=== PATIENT | male | born 1955 | race Caucasian/White ===

== ENCOUNTER 2017-10-21 16:45 | Inpatient (IN) | payer OTHER ==
[~2017-10-21] VITALS: Ht 182.9 cm; Wt 104.3 kg
[~2017-10-21 16:45] MED LIST: ACET-2469 PO; APIX5TAB PO; ASPI-983 PO; BUDE10.2 IH; CALC1TAB94 PO; CARV12.52 PO; CLOP75TA69 PO; CYAN10006 PO; ESOM20CA58 PO; FURO-125 PO; LISI10TA2 PO; LISI1TAB8 PO; LOVA20TA2 PO; METF10002 PO; METO50TA15 PO; METO75TA PO; OMEP20TA33 PO; OMEP20TA7 PO; POTA10TA36 PO
[2017-10-21] MEDS ORDERED: morphine INJ 10 MG/ML 1ML (SYR OR VIAL) IVP ONE (17:00)
[2017-10-21] MEDS ORDERED: ASPIRIN 81 MG CHEW (CHILDREN'S ASA) PO ONE (17:00)
--- NOTE | 2017-10-21 17:03 | ED Chest Pain ---
General Stated Complaint: VOMITING, LIGHT HEADED/CP Source: patient Exam Limitations: no limitations History of Present Illness Date Seen by Provider: Oct 21, 2017 Time Seen by Provider: 16:58 Initial Comments Patient is a 62-year-old male who presents to the emergency room with complaints of chest pain that has been constant for 2 days but today he started having shortness of breath and nausea and vomiting. He reports that he has an extensive cardiac history, he's had a three-vessel CABG, congestive heart failure, ischemic cardiomyopathy, hypertension, atrial fibrillation with rapid ventricular rate, ejection fraction of 15-20%. He states that he is supposed to wear LifeVest for runs of [employer] but does not have it on today because it is too hot and he left in the truck. He also reports that he's been having diarrhea for the past 2-3 days in his chest pain is worse with inspiration. Timing/Duration: constant, 1-2 days Severity/Quality: moderate Location: substernal ASA po PHYSICAL DESIGN ENGINEER: No NTG SL PHYSICAL DESIGN ENGINEER: No Associated Symptoms: nausea/vomiting, shortness of breath Allergies and Home Medications Allergies Coded Allergies: codeine (Verified Allergy, Mild, ITCHING, 08/21/17) Home Medications Acetaminophen/Diphenhydramine 1 Each Tablet, 3 TAB PO HS, (Reported) Apixaban 5 Mg Tablet, 5 MG PO BID Prescribed by: ALLEY URIAS on 08/23/17821 Aspirin 81 Mg Tablet.dr, 81 MG PO DAILY, (Reported) Budesonide/Formoterol Fumarate 10.2 Gm Hfa.aer.ad, 2 PUFF IH BID, (Reported) Calcium Carbonate/Vitamin D3 1 Each Tablet, 1 TAB PO DAILY, (Reported) Cyanocobalamin (Vitamin B-12) 1,000 Mcg Tablet, 1,000 MCG PO DAILY, (Reported) Furosemide 20 Mg Tablet, 20 MG PO DAILY Prescribed by: ALLEY URIAS on 08/23/17821 Lisinopril 10 Mg Tablet, 10 MG PO DAILY Prescribed by: ALLEY URIAS on 08/23/17821 Lovastatin 20 Mg Tablet, 20 MG PO HS, (Reported) LAST FILLED #90 04-30-17 Metformin HCl 1,000 Mg Tablet, 1,000 MG PO DAILY LAST FILLED #180 04-30-17 Prescribed by: ALLEY URIAS on 4/21/18 0822 Metoprolol Tartrate 75 Mg Tablet, 75 MG PO BID Prescribed by: FAMILIA QUENE on 08/23/17 1317 Omeprazole 20 Mg Tablet.dr, 20 MG PO DAILY Prescribed by: ALLEY URIAS on 08/23/17 0935 Potassium Chloride 10 Meq Tab.er.prt, 10 MEQ PO DAILY, (Reported) Patient Home Medication List Home Medication List Reviewed: Yes Review of Systems Constitutional: see HPI; No chills, No diaphoresis EENTM: See HPI; No Eye Pain, No Eye Tearing Respiratory: See HPI, Shortness of Air; Denies Wheezing Cardiovascular: See HPI, Chest Pain; Denies Palpitations Gastrointestinal: See HPI, Diarrhea, Nausea, Vomiting Genitourinary: Denies See HPI, Denies Burning, Denies Discharge Musculoskeletal: see HPI; No back pain, No muscle pain Skin: see HPI; No change in color, No pruritus, No rash Psychiatric/Neurological: See HPI; Denies Depressed, Denies Emotional Problems Endocrine: See HPI; Denies Excessive Sweating, Denies Flushing Hematologic/Lymphatic: See HPI; Denies Anemia All Other Systems Reviewed Negative Unless Noted: Yes Past Cumsgcr-Ypemxb-Kmprkw Hx Past Med/Social Hx: Reviewed Nursing Past Med/Soc Hx Patient Social History Type Used: Cigarettes Recent Hopitalizations: No Seasonal Allergies Seasonal Allergies: No Past Medical History CABG, Orthopedic Pneumonia, COPD Currently Using CPAP: No Currently Using BIPAP: No Cardiac: Yes Coronary Artery Disease, Heart Attack, Hypertension Neurological: No Genitourinary: No Gastrointestinal: Yes Gastroesophageal Reflux, Hepatitis Degenerate Disk Disease Endocrine: Yes Diabetes, Non-Insulin dep HEENT: No Loss of Vision: Denies Hearing Impairment: Denies Cancer: No Psychosocial: No Integumentary: No Blood Disorders: No Family Medical History Reviewed Nursing Family Hx CVA Physical Exam Vital Signs Vital Signs - First Documented 10/21/17 16:45 Temp 98.1 Pulse 73 Resp 17 B/P (MAP) 109/67 (81) Pulse Ox 96 O2 Delivery Nasal Cannula O2 Flow Rate 2.0 Capillary Refill : General Appearance: No Apparent Distress, WD/WN HEENT: TMs Normal Neck: Normal Inspection Respiratory: Lungs Clear, Normal Breath Sounds, No Accessory Muscle Use, No Respiratory Distress, Other (the pain is worse with deep breathing) Cardiovascular: Regular Rate, Rhythm, No Edema, No Gallop, No JVD, No Murmur, Normal Peripheral Pulses Gastrointestinal: Normal Bowel Sounds, No Organomegaly, No Pulsatile Mass Extremity: Normal Capillary Refill, Normal Inspection, Normal Range of Motion, Non Tender, No Calf Tenderness Neurologic/Psychiatric: Alert, Oriented x3, Normal Mood/Affect Skin: Normal Color, Warm/Dry Lymphatic: No Adenopathy Progress/Results/Core Measures Results/Orders Lab Results Laboratory Tests Test 10/21/17 16:50 Range/Units White Blood Count 15.2 H 4.3-11.0 10^3/uL Red Blood Count 4.23 L 4.35-5.85 10^6/uL Hemoglobin 13.7 13.3-17.7 G/DL Hematocrit 38 L 40-54 % Mean Corpuscular Volume 89 80-99 FL Mean Corpuscular Hemoglobin 32 25-34 PG Mean Corpuscular Hemoglobin Concent 36 32-36 G/DL Red Cell Distribution Width 13.3 10.0-14.5 % Platelet Count 247 130-400 10^3/uL Mean Platelet Volume 10.8 H 7.4-10.4 FL Neutrophils (%) (Auto) 60 42-75 % Lymphocytes (%) (Auto) 30 12-44 % Monocytes (%) (Auto) 7 0-12 % Eosinophils (%) (Auto) 2 0-10 % Basophils (%) (Auto) 0 0-10 % Neutrophils # (Auto) 9.1 H 1.8-7.8 X 10^3 Lymphocytes # (Auto) 4.6 H 1.0-4.0 X 10^3 Monocytes # (Auto) 1.1 H 0.0-1.0 X 10^3 Eosinophils # (Auto) 0.4 H 0.0-0.3 10^3/uL Basophils # (Auto) 0.1 0.0-0.1 10^3/uL Neutrophils % (Manual) 62 % Lymphocytes % (Manual) 34 % Monocytes % (Manual) 3 % Eosinophils % (Manual) 1 % Basophils % (Manual) 0 % Band Neutrophils 0 % Blood Morphology Comment NORMAL Prothrombin Time 14.7 12.2-14.7 SEC INR Comment 1.2 0.8-1.4 Activated Partial Thromboplast Time 29 24-35 SEC Sodium Level 143 135-145 MMOL/L Potassium Level 4.0 3.6-5.0 MMOL/L Chloride Level 110 H 98-107 MMOL/L Carbon Dioxide Level 21 21-32 MMOL/L Anion Gap 12 5-14 MMOL/L Blood Urea Nitrogen 21 H 7-18 MG/DL Creatinine 1.36 H 0.60-1.30 MG/DL Estimat Glomerular Filtration Rate 53 BUN/Creatinine Ratio 15 Glucose Level 121 H 70-105 MG/DL Calcium Level 8.3 L 8.5-10.1 MG/DL Magnesium Level < 0.7 *L 1.8-2.4 MG/DL Total Bilirubin 0.7 0.1-1.0 MG/DL Aspartate Amino Transf (AST/SGOT) 15 5-34 U/L Alanine Aminotransferase (ALT/SGPT) 17 0-55 U/L Alkaline Phosphatase 56 40-136 U/L Myoglobin 43.8 10.0-92.0 NG/ML Troponin I < 0.30 <0.30 NG/ML B-Type Natriuretic Peptide 23.7 <100.0 PG/ML Total Protein 7.5 6.4-8.2 GM/DL Albumin 4.4 3.2-4.5 GM/DL Lipase 59 8-78 U/L My Orders Orders - RIGOBERTO MONAHAN GATE OPERATOR Cbc With Automated Diff (10/21/17 16:55) Magnesium (10/21/17 16:55) Chest 1 View, Ap/Pa Only (10/21/17 16:55) Ekg Tracing (10/21/17 16:55) Cardiac Profile 1 (10/21/17 16:55) Comprehensive Metabolic Panel (10/21/17 16:55) Myoglobin Serum (10/21/17 16:55) Protime With Inr (10/21/17 16:55) Partial Thromboplastin Time (10/21/17 16:55) O2 (10/21/17 16:55) Monitor-Rhythm Ecg Trace Only (10/21/17 16:55) Lipid Panel (10/22/17 06:00) Aspirin Chewable Tablet (Baby Aspirin Ch (10/21/17 17:00) Saline Lock/Iv-Start (10/21/17 16:55) Lipase (10/21/17 16:55) BNP (10/21/17 16:55) Morphine Injection (Morphine Injection (10/21/17 17:00) Manual Differential (10/21/17 16:50) Ns Iv 1000 Ml (Sodium Chloride 0.9%) (10/21/17 17:08) Ns Iv 1000 Ml (Sodium Chloride 0.9%) (10/21/17 17:15) Ondansetron Injection (Zofran Injectio (10/21/17 17:15) Ondansetron Injection (Zofran Injectio (10/21/17 17:15) Ondansetron Injection (Zofran Injectio (10/21/17 17:12) Magnesium 1 Gm/100 Ml Ivpb (Magnesium Degroot (10/21/17 17:45) Medications Given in ED Current Medications Medications Dose Ordered Sig/Almita Route Start Time Stop Time Status Last Admin Dose Admin Aspirin 324 mg ONCE ONCE PO 10/21/17 17:00 10/21/17 17:01 DC 10/21/17 17:15 324 MG Morphine Sulfate 4 mg ONCE ONCE IVP 10/21/17 17:00 10/21/17 17:01 DC 10/21/17 17:14 2 MG Ondansetron HCl 4 mg ONCE ONCE IVP 10/21/17 17:15 10/21/17 17:16 DC 10/21/17 17:15 8 MG Vital Signs/I&O 10/21/17 10/21/17 10/21/17 16:45 16:45 16:45 Temp 98.1 Pulse 73 Resp 17 B/P (MAP) 109/67 (81) Pulse Ox 96 96 O2 Delivery Nasal Cannula Nasal Cannula Room Air O2 Flow Rate 2.0 2.00 Departure Communication (Admissions) Time/Spoke to Admitting Phy: 17:52 patient's termite technician was Dr. Churchill last time he was here. I discussed the case with Dr. Knott food demonstrator for hospitalist. The patient says he sees Dr. Jc in the outpatient setting and has only seen her once though. I discussed with Dr. Knott, we will admit the patient, replace magnesium IV, consult termite technician in the morning. We'll retrieve his life vest from the truck where he left it in place back on him during his hospital stay. Impression Primary Impression: Hypomagnesemia Additional Impressions: Chest pain Coronary artery disease Ischemic cardiomyopathy Heart failure with reduced ejection fraction Disposition: ADMITTED INPATIENT Condition: Critical Admissions Decision to Admit Reason: Admit from ER (General) Decision to Admit/Date: Oct 21, 2017 Time/Decision to Admit Time: 17:46 RIGOBERTO MONAHAN APRN Oct 21, 2017 17:03
[2017-10-21 17:05] LABS: BASOPHILS # (AUTO) 0.1 10^3/uL (0.0-0.1); BASOPHILS % (AUTO) 0 % (0-10); EOSINOPHILS # (AUTO) 0.4 10^3/uL (0.0-0.3); EOSINOPHILS % (AUTO) 2 % (0-10); HEMATOCRIT 38 % (40-54); HEMOGLOBIN 13.7 G/DL (13.3-17.7); LYMPHOCYTES # (AUTO) 4.6 X 10^3 (1.0-4.0); LYMPHOCYTES % (AUTO) 30 % (12-44); MEAN CORPUSCULAR HEMOGLOBIN 32 PG (25-34); MEAN CORPUSCULAR HGB CONC 36 G/DL (32-36); MEAN CORPUSCULAR VOLUME 89 FL (80-99); MEAN PLATELET VOLUME 10.8 FL (7.4-10.4); MONOCYTES # (AUTO) 1.1 X 10^3 (0.0-1.0); MONOCYTES % (AUTO) 7 % (0-12); NEUTROPHILS # (AUTO) 9.1 X 10^3 (1.8-7.8); NEUTROPHILS % (AUTO) 60 % (42-75); PLATELET COUNT 247 10^3/uL (130-400); RED BLOOD COUNT 4.23 10^6/uL (4.35-5.85); RED CELL DISTRIBUTION WIDTH 13.3 % (10.0-14.5); WHITE BLOOD COUNT 15.2 10^3/uL (4.3-11.0)
[2017-10-21] MEDS ORDERED: NS IV 1000 ML 1,000 ML ONE (17:08)
[2017-10-21] MEDS ORDERED: ONDANSETRON 4 MG/2 ML (SDV) Z0FRAN ONE (17:12)
[2017-10-21] MEDS ORDERED: NS IV 1000 ML 1,000 ML IV SCH (17:15)
[2017-10-21] MEDS ORDERED: ONDANSETRON 4 MG/2 ML (SDV) Z0FRAN IVP ONE ×2 (17:15)
[2017-10-21 17:25] LABS: INR 1.2 (0.8-1.4); PROTHROMBIN TIME PATIENT 14.7 SEC (12.2-14.7)
[2017-10-21 17:32] LABS: ALANINE AMINOTRANSFERASE 17 U/L (0-55); ALBUMIN 4.4 GM/DL (3.2-4.5); ALKALINE PHOSPHATASE 56 U/L (40-136); BILIRUBIN,TOTAL 0.7 MG/DL (0.1-1.0); BUN/CREATININE RATIO 15; CALCIUM 8.3 MG/DL (8.5-10.1); CARBON DIOXIDE 21 MMOL/L (21-32); CHLORIDE 110 MMOL/L (98-107); CREATININE SERUM 1.36 MG/DL (0.60-1.30); GFR ESTIMATED 53; GLUCOSE 121 MG/DL (70-105); LIPASE 59 U/L (8-78); SODIUM 143 MMOL/L (135-145); TOTAL PROTEIN 7.5 GM/DL (6.4-8.2)
[2017-10-21 17:35] LABS: MAGNESIUM < 0.7 MG/DL (1.8-2.4)
[2017-10-21 17:38] LABS: BAND NEUTROPHILS 0 %; BASOPHILS % (MANUAL) 0 %; EOSINOPHILS % (MANUAL) 1 %; LYMPHOCYTES % (MANUAL) 34 %; MONOCYTES % (MANUAL) 3 %; NEUTROPHILS % (MANUAL) 62 %; RBC MORPH NORMAL
[2017-10-21 17:39] LABS: MYOGLOBIN SERUM 43.8 NG/ML (10.0-92.0)
--- NOTE | 2017-10-21 17:45 | Diagnostic Imaging Report ---
INDICATION: Chest pain and lightheadedness. EXAMINATION: Portable upright AP view of the chest is obtained. COMPARISON: Comparison is made to study of 08/23/2017. FINDINGS: There is mild cardiomegaly. There is mild air trapping in both lungs. No consolidation is identified. There is no pneumothorax. Surgical findings are stable. IMPRESSION: Cardiomegaly and probable emphysema without other evidence of acute abnormality. Dictated by: Dictated on workstation # [id number]
[2017-10-21] MEDS: MAGNESIUM 1 GM/100 ML IVPB 100 ML IV SCH ×5 (17:55→23:53)
[2017-10-21] MEDS: NS IV 1000 ML 1,000 ML IV SCH (18:55)
[2017-10-21 19:00] VITALS: BP 121/74
[2017-10-21] MEDS ORDERED: CATHETER FLUSH 10 ML SYR IV PRN (19:00)
[2017-10-21] MEDS ORDERED: ONDANSETRON 4 MG/2 ML (SDV) Z0FRAN IV PRN (19:00)
[2017-10-21 19:35] VITALS: BP 124/72
[2017-10-21 20:00] VITALS: BP 115/60
[2017-10-21 21:00] VITALS: BP 118/90
[2017-10-21] MEDS ORDERED: MELATONIN 3 MG TABLET ONE (21:23)
[2017-10-21] MEDS ORDERED: QUEtiapine 25 MG (SEROquel) TAB IMMEDIATE RELEASE ONE (21:24)
[2017-10-21] MEDS ORDERED: QUEtiapine 25 MG (SEROquel) TAB IMMEDIATE RELEASE PO ONE (21:30)
[2017-10-21 22:00] VITALS: BP 104/71
[2017-10-21 23:00] VITALS: BP 82/46
[2017-10-22] VITALS (13 sets, daily range): BP systolic 71–107; BP diastolic 36–75
[2017-10-22] MEDS: MAGNESIUM 1 GM/100 ML IVPB 100 ML IV SCH (01:15)
[2017-10-22 03:37] LABS: BASOPHILS % (AUTO) 0 % (0-10); EOSINOPHILS # (AUTO) 0.3 10^3/uL (0.0-0.3); EOSINOPHILS % (AUTO) 3 % (0-10); HEMATOCRIT 32 % (40-54); HEMOGLOBIN 11.8 G/DL (13.3-17.7); LYMPHOCYTES # (AUTO) 4.7 X 10^3 (1.0-4.0); LYMPHOCYTES % (AUTO) 43 % (12-44); MEAN CORPUSCULAR HEMOGLOBIN 33 PG (25-34); MEAN CORPUSCULAR HGB CONC 37 G/DL (32-36); MEAN CORPUSCULAR VOLUME 90 FL (80-99); MEAN PLATELET VOLUME 10.9 FL (7.4-10.4); MONOCYTES # (AUTO) 0.7 X 10^3 (0.0-1.0); MONOCYTES % (AUTO) 6 % (0-12); NEUTROPHILS # (AUTO) 5.3 X 10^3 (1.8-7.8); NEUTROPHILS % (AUTO) 48 % (42-75); PLATELET COUNT 204 10^3/uL (130-400); RED BLOOD COUNT 3.56 10^6/uL (4.35-5.85); RED CELL DISTRIBUTION WIDTH 12.9 % (10.0-14.5); WHITE BLOOD COUNT 11.1 10^3/uL (4.3-11.0)
[2017-10-22 03:55] LABS: ALANINE AMINOTRANSFERASE 14 U/L (0-55); ALBUMIN 3.6 GM/DL (3.2-4.5); ALKALINE PHOSPHATASE 47 U/L (40-136); BILIRUBIN,TOTAL 0.4 MG/DL (0.1-1.0); BUN/CREATININE RATIO 17; CALCIUM 7.7 MG/DL (8.5-10.1); CARBON DIOXIDE 18 MMOL/L (21-32); CHLORIDE 111 MMOL/L (98-107); CHOLESTEROL 140 MG/DL (< 200); CREATININE SERUM 1.15 MG/DL (0.60-1.30); GFR ESTIMATED > 60; GLUCOSE 71 MG/DL (70-105); HDL CHOLESTEROL 23 MG/DL (40-60); PHOSPHORUS 4.3 MG/DL (2.3-4.7); POTASSIUM 3.6 MMOL/L (3.6-5.0); SODIUM 141 MMOL/L (135-145); TOTAL PROTEIN 6.1 GM/DL (6.4-8.2); TRIGLYCERIDES 226 MG/DL (<150); VLDL CHOLESTEROL 45 MG/DL (5-40)
--- NOTE | 2017-10-22 06:45 | Pulmonary Consultation ---
History of Present Illness History of Present Illness Date of Consultation 10/22/17 06:40 Time Seen by Provider: 06:40 Date of Admission History of Present Illness 62yo with hx of CAD, CABG, CHF EF 15-20%, ischemic cardiomyopathy presented to ED secondary to persistent CP x 2 days progressing to increasing SOB, n/v. Pt has a lifeVest at home however did not have it on upon ED admission. Allergies and Home Medications Allergies Coded Allergies: codeine (Verified Allergy, Mild, ITCHING, 08/21/17) Home Medications Acetaminophen/Diphenhydramine 1 Each Tablet, 3 TAB PO HS, (Reported) Apixaban 5 Mg Tablet, 5 MG PO BID Prescribed by: ALLEY URIAS on 08/23/17821 Aspirin 81 Mg Tablet.dr, 81 MG PO DAILY, (Reported) Budesonide/Formoterol Fumarate 10.2 Gm Hfa.aer.ad, 2 PUFF IH BID, (Reported) Calcium Carbonate/Vitamin D3 1 Each Tablet, 1 TAB PO DAILY, (Reported) Cyanocobalamin (Vitamin B-12) 1,000 Mcg Tablet, 1,000 MCG PO DAILY, (Reported) Furosemide 20 Mg Tablet, 20 MG PO DAILY Prescribed by: ALLEY URIAS on 08/23/17821 Lisinopril 10 Mg Tablet, 10 MG PO DAILY Prescribed by: ALLEY URIAS on 08/23/17821 Lovastatin 20 Mg Tablet, 20 MG PO HS, (Reported) LAST FILLED #90 04-30-17 Metformin HCl 1,000 Mg Tablet, 1,000 MG PO DAILY LAST FILLED #180 04-30-17 Prescribed by: ALLEY URIAS on 08/23/17 08 Metoprolol Tartrate 75 Mg Tablet, 75 MG PO BID Prescribed by: FAMILIA QUEEN on 08/23/17 1317 Omeprazole 20 Mg Tablet.dr, 20 MG PO DAILY Prescribed by: ALLEY URIAS on 08/23/17 0935 Potassium Chloride 10 Meq Tab.er.prt, 10 MEQ PO DAILY, (Reported) Past Jmflzha-Erjitf-Xbqdsj Hx Past Med/Social Hx: Reviewed Nursing Past Med/Soc Hx Patient Social History Alcohol Use: Rarely Uses Number of Drinks Today: 0 Recreational Drug Use: No Smoking Status: Current Everyday Smoker Type Used: Cigarettes Recent Foreign Travel: No Contact w/Someone Who Travel: No Recent Infectious Disease Expo: No Recent Hopitalizations: No Physical Abuse: No Sexual Abuse: No Seasonal Allergies Seasonal Allergies: No Past Medical History CABG, Orthopedic Pneumonia, COPD Currently Using CPAP: No Currently Using BIPAP: No Cardiac: Yes Coronary Artery Disease, Heart Attack, Hypertension Neurological: No Genitourinary: No Gastrointestinal: Yes Gastroesophageal Reflux, Hepatitis Degenerate Disk Disease Endocrine: Yes Diabetes, Non-Insulin dep HEENT: No Loss of Vision: Denies Hearing Impairment: Denies Cancer: No Psychosocial: No Nursing Suicide Risk Score: 0 Integumentary: No Blood Disorders: No Family Medical History Reviewed Nursing Family Hx CVA Exam Exam Vital Signs Date Time Temp Pulse Resp B/P (MAP) Pulse Ox O2 Delivery O2 Flow Rate FiO2 10/22/17 06:00 64 13 104/75 (85) Nasal Cannula 2.00 10/22/17 05:00 59 16 107/70 (82) Nasal Cannula 2.00 10/22/17 04:00 Nasal Cannula 2.00 10/22/17 04:00 68 17 104/57 (73) 98 Nasal Cannula 2.00 10/22/17 03:00 50 14 95/54 (68) 99 Nasal Cannula 2.00 10/22/17 02:00 55 14 88/54 (65) 94 Nasal Cannula 2.00 10/22/17 01:00 57 19 89/57 (68) 93 Nasal Cannula 2.00 10/22/17 01:00 57 10/22/17 00:00 Nasal Cannula 2.00 10/22/17 00:00 54 15 71/36 (48) 95 Nasal Cannula 2.00 10/21/17 23:00 71 25 82/46 (58) 96 Nasal Cannula 2.00 10/21/17 22:00 63 21 104/71 (82) 98 Nasal Cannula 2.00 10/21/17 21:00 65 20 118/90 (99) 98 Nasal Cannula 2.00 10/21/17 20:00 Nasal Cannula 2.00 10/21/17 20:00 23 23 115/60 (78) 97 Nasal Cannula 2.00 10/21/17 19:35 97.0 61 18 124/72 (89) 97 Nasal Cannula 2.00 10/21/17 19:30 98 Room Air 10/21/17 19:00 55 10/21/17 19:00 55 19 121/74 (90) 95 Nasal Cannula 2.00 10/21/17 18:30 56 18 99/63 97 10/21/17 16:45 98.1 73 17 109/67 (81) 96 Room Air 10/21/17 16:45 96 Nasal Cannula 2.00 10/21/17 16:45 Nasal Cannula 2.0 I & O 10/22/17 07:00 Intake Total 1850 ml Output Total 350 ml Balance 1500 ml General Appearance: No Apparent Distress, WD/WN HEENT: TMs Normal Neck: Normal Inspection Respiratory: Lungs Clear, Normal Breath Sounds, No Accessory Muscle Use, No Respiratory Distress, Other (the pain is worse with deep breathing) Cardiovascular: Regular Rate, Rhythm, No Edema, No Gallop, No JVD, No Murmur, Normal Peripheral Pulses Capillary Refill: Less Than 3 Seconds Extremity: Normal Capillary Refill, Normal Inspection, Normal Range of Motion, Non Tender, No Calf Tenderness Neurologic/Psychiatric: Alert, Oriented x3, Normal Mood/Affect Skin: Normal Color, Warm/Dry Lymphatic: No Adenopathy Results Lab Laboratory Tests 10/21/17 16:50 10/22/17 03:05 Assessment/Plan Assessment/Plan Acute CP CAD hx of CABG Ischemic cardiomyopathy 15% -Life vest - pt has not been using -cardiology consulted Hypotension -continue to monitor for now Afib RVR Tobacco dependance -education Medical noncompliance GILDA MACKAY DO Oct 22, 2017 06:45
--- NOTE | 2017-10-22 07:55 | Diagnostic Imaging Report ---
INDICATION: Dyspnea. COMPARISON: 10/21/2017. FINDINGS: Single frontal view of the chest demonstrates mild cardiomegaly. Pulmonary vasculature is within normal limits. Sternotomy wires are noted. External metallic medical devices are also present. The lungs are well aerated and clear. No large pleural effusion or pneumothorax is seen. The visualized osseous structures show no acute abnormalities. IMPRESSION: 1. Mild cardiomegaly, but no evidence of failure or focal infiltrate. Dictated by: Dictated on workstation # [id number]
[2017-10-22] MEDS: NS IV 1000 ML 1,000 ML IV SCH (08:20)
--- NOTE | 2017-10-22 09:05 | Consultation-Cardiology ---
HPI-Cardiology Cardiology Consultation Date of Consultation 10/22/17 Date of Admission Time Seen by Provider: 08:58 Indication: Chest pain HPI 62 years old gentleman with history of congestive heart failure, coronary artery disease, has been having diarrhea for the past week which became worse, started having lightheadedness and dizziness, reporting episodes of chest pain with discomfort in the retrosternal area. No palpitation, had mild dyspnea on exertion. No syncope or near syncopal episodes no pedal edema. No claudication. He has a LifeVest. No discharge from the device Home Medications & Allergies Allergies: Coded Allergies: codeine (Verified Allergy, Mild, ITCHING, 08/21/17) Home Medication List Reviewed: Yes KHF-Rcwzse-Fglkka Hx Patient Social History Marital Status: Employed/Student: employed Alcohol Use: Rarely Uses Recreational Drug Use: No Smoking Status: Current Everyday Smoker Type Used: Cigarettes Recent Foreign Travel: No Recent Infectious Disease Expo: No Recent Hopitalizations: No Physical Abuse Screen: No Sexual Abuse: No Past Medical History Discussed below Family Medical History Significant Family History: CVA Family Medical Hx Non contributory to her current condition Constitutional: no symptoms reported, see HPI EENTM: see HPI, no symptoms reported Respiratory: see HPI, dyspnea on exertion Cardiovascular: see HPI, chest pain Gastrointestinal: see HPI, diarrhea Genitourinary: no symptoms reported, see HPI Musculoskeletal: no symptoms reported, see HPI Skin: no symptoms reported, see HPI Psychiatric/Neurological: No Symptoms Reported, See HPI Reviewed Test Results Reviewed Test Results Lab Laboratory Tests Test 10/21/17 16:50 10/21/17 23:00 10/22/17 03:05 Range/Units White Blood Count 15.2 H 11.1 H 4.3-11.0 10^3/uL Red Blood Count 4.23 L 3.56 L 4.35-5.85 10^6/uL Hemoglobin 13.7 11.8 L 13.3-17.7 G/DL Hematocrit 38 L 32 L 40-54 % Mean Corpuscular Volume 89 90 80-99 FL Mean Corpuscular Hemoglobin 32 33 25-34 PG Mean Corpuscular Hemoglobin Concent 36 37 H 32-36 G/DL Red Cell Distribution Width 13.3 12.9 10.0-14.5 % Platelet Count 247 204 130-400 10^3/uL Mean Platelet Volume 10.8 H 10.9 H 7.4-10.4 FL Neutrophils (%) (Auto) 60 48 42-75 % Lymphocytes (%) (Auto) 30 43 12-44 % Monocytes (%) (Auto) 7 6 0-12 % Eosinophils (%) (Auto) 2 3 0-10 % Basophils (%) (Auto) 0 0 0-10 % Neutrophils # (Auto) 9.1 H 5.3 1.8-7.8 X 10^3 Lymphocytes # (Auto) 4.6 H 4.7 H 1.0-4.0 X 10^3 Monocytes # (Auto) 1.1 H 0.7 0.0-1.0 X 10^3 Eosinophils # (Auto) 0.4 H 0.3 0.0-0.3 10^3/uL Basophils # (Auto) 0.1 0.0 0.0-0.1 10^3/uL Neutrophils % (Manual) 62 % Lymphocytes % (Manual) 34 % Monocytes % (Manual) 3 % Eosinophils % (Manual) 1 % Basophils % (Manual) 0 % Band Neutrophils 0 % Blood Morphology Comment NORMAL Prothrombin Time 14.7 12.2-14.7 SEC INR Comment 1.2 0.8-1.4 Activated Partial Thromboplast Time 29 24-35 SEC Sodium Level 143 141 135-145 MMOL/L Potassium Level 4.0 3.6 3.6-5.0 MMOL/L Chloride Level 110 H 111 H 98-107 MMOL/L Carbon Dioxide Level 21 18 L 21-32 MMOL/L Anion Gap 12 12 5-14 MMOL/L Blood Urea Nitrogen 21 H 19 H 7-18 MG/DL Creatinine 1.36 H 1.15 0.60-1.30 MG/DL Estimat Glomerular Filtration Rate 53 > 60 BUN/Creatinine Ratio 15 17 Glucose Level 121 H 71 70-105 MG/DL Calcium Level 8.3 L 7.7 L 8.5-10.1 MG/DL Magnesium Level < 0.7 *L 2.0 1.8-2.4 MG/DL Total Bilirubin 0.7 0.4 0.1-1.0 MG/DL Aspartate Amino Transf (AST/SGOT) 15 14 5-34 U/L Alanine Aminotransferase (ALT/SGPT) 17 14 0-55 U/L Alkaline Phosphatase 56 47 40-136 U/L Myoglobin 43.8 10.0-92.0 NG/ML Troponin I < 0.30 < 0.30 < 0.30 <0.30 NG/ML B-Type Natriuretic Peptide 23.7 <100.0 PG/ML Total Protein 7.5 6.1 L 6.4-8.2 GM/DL Albumin 4.4 3.6 3.2-4.5 GM/DL Lipase 59 8-78 U/L Phosphorus Level 4.3 2.3-4.7 MG/DL Triglycerides Level 226 H <150 MG/DL Cholesterol Level 140 < 200 MG/DL LDL Cholesterol Direct 87 1-129 MG/DL VLDL Cholesterol 45 H 5-40 MG/DL HDL Cholesterol 23 L 40-60 MG/DL Physical Exam Vital Signs Vital Signs - First Documented 10/21/17 16:45 Temp 98.1 Pulse 73 Resp 17 B/P (MAP) 109/67 (81) Pulse Ox 96 O2 Delivery Nasal Cannula O2 Flow Rate 2.0 Capillary Refill : Less Than 3 Seconds General Appearance: No Apparent Distress, WD/WN Eyes: Bilateral Eye Normal Inspection, Bilateral Eye PERRL, Bilateral Eye EOMI HEENT: PERRL/EOMI, TMs Normal, Normal ENT Inspection, Pharynx Normal Neck: Full Range of Motion, Normal Inspection, Non Tender, Supple, Carotid Bruit Respiratory: Chest Non Tender, Lungs Clear, Normal Breath Sounds, No Accessory Muscle Use, No Respiratory Distress Cardiovascular: Regular Rate, Rhythm, No Edema, No Gallop, No JVD, No Murmur, Normal Peripheral Pulses Gastrointestinal: Normal Bowel Sounds, No Organomegaly, No Pulsatile Mass, Non Tender, Soft Back: Normal Inspection, No CVA Tenderness, No Vertebral Tenderness Extremity: Normal Capillary Refill, Normal Inspection, Normal Range of Motion, Non Tender, No Calf Tenderness, No Pedal Edema Neurologic/Psychiatric: Alert, Oriented x3, No Motor/Sensory Deficits, Normal Mood/Affect Skin: Normal Color, Warm/Dry Lymphatic: No Adenopathy A/P-Cardiology Admission Diagnosis Dehydration Diarrhea Hypomagnesemia Chest pain nonspecific etiology Assessment/Plan Dehydration and hypotension secondary to diarrhea. Receiving IV fluid, improving. Hypomagnesemia, replaced, continue to monitor Congestive heart failure, chronic compensated left ventricular systolic dysfunction, currently hypovolemic. Restart medication, hold Lasix. Coronary artery disease, history of CABG, last stress test was done in August 2017. No ischemia was noted. Continue to monitor Paroxysmal atrial fibrillation, maintained on Eliquis. Followed by Dr. Churchill Hypertension, currently borderline hypotension secondary to dehydration. Hold Lasix for now and receiving IV fluid. Restart Lasix on discharge. Hyperlipidemia, maintained on lovastatin. Hold lovastatin due to diarrhea Diabetes mellitus, followed and managed by primary care physician Patient has LifeVest for primary prevention. Chest pain nonspecific etiology, atypical in presentation. Cardiac enzymes were negative. EKG has left bundle branch block no changes from baseline From cardiology standpoint once patient is rehydrated he can go home Clinical Quality Measures AMI/AHF: ASA po Prior to arrival: No DVT/VTE Risk/Contraindication: Risk Factor Score Per Nursin RFS Level Per Nursing on Admit: 3=High ESTRELLA BOWEN MD Oct 22, 2017 09:05
[2017-10-22] MEDS ORDERED: ACET-2469 PO (09:26)
[2017-10-22] MEDS ORDERED: FAMO-119 PO (09:26)
[2017-10-22] MEDS ORDERED: FAMOTIDINE 20 MG (PEPCID) TABLET PO PRN (09:30)
[2017-10-22] MEDS ORDERED: FAMOTIDINE 20 MG (PEPCID) TABLET PO NR (09:30)
[2017-10-22] MEDS ORDERED: CALCIUM CARBONATE 500 MG (TUMS) TAB.CHEW PO NR (09:30)
[2017-10-22] MEDS ORDERED: CALCIUM CARBONATE 500 MG (TUMS) TAB.CHEW PO PRN (09:30)
--- NOTE | 2017-10-22 11:46 | Short Stay Summary-Hospitalist ---
History of Present Illness HPI/Chief Complaint CC: Weakness with chest pain HPI: This is a 62-year-old white male that establish in my [facility] clinic 2 months ago with a past medical history of severe cardiomyopathy on life vest who presented with chest pain and shortness of breath. He works outside and was exposed to a lot of heat and he left his life vest and the truck. He was found to have mild dehydration responded well to IV fluids and now ready for discharge with close follow-up with me at the [facility]. He reports that he has loose stools so I will stop the metformin since that is been going on for 2 months. Source: patient Date Seen 10/22/17 Time Seen by Provider: 10:30 Attending Physician Jone Knott MD PCP No,Local Physician Referring Physician Date of Admission Oct 21, 2017 at 18:22 Home Medications & Allergies Home Medications Reviewed patient Home Medication Reconciliation performed by pharmacy medication reconciliations solar energy technician and/or nursing. Patients Allergies have been reviewed. Allergies Allergies Coded Allergies codeine (Verified Allergy, Mild, ITCHING, 08/21/17) Past [id number] Hx Past Med/Social Hx: Reviewed Nursing Past Med/Soc Hx, Reviewed and Corrections made Patient Social History Marrital Status: Employed/Student: employed Alcohol Use: Rarely Uses Number of Drinks Today: 0 Recreational Drug Use: No Smoking Status: Current Everyday Smoker Type Used: Cigarettes Physical Abuse Screen: No Sexual Abuse: No Recent Foreign Travel: No Contact w/other who traveled: No Recent Hopitalizations: No Recent Infectious Disease Expo: No Seasonal Allergies Seasonal Allergies: No Past Medical History Surgeries: CABG, Orthopedic Respiratory: COPD Currently Using CPAP: No Currently Using BIPAP: No Cardiac: Coronary Artery Disease, Heart Attack, Hypertension Gastrointestinal: Gastroesophageal Reflux, Hepatitis Musculoskeletal: Degenerate Disk Disease Endocrine: Diabetes, Non-Insulin dep Loss of Vision: Denies Hearing Impairment: Denies History of Blood Disorders: No Family History Reviewed Nursing Family Hx CVA Review of Systems Constitutional: see HPI, dizziness, weakness EENTM: no symptoms reported Respiratory: no symptoms reported Cardiovascular: chest pain Gastrointestinal: diarrhea Genitourinary: no symptoms reported Musculoskeletal: no symptoms reported Skin: no symptoms reported Psychiatric/Neurological: No Symptoms Reported All Other Systems Reviewed Negative Unless Noted: Yes Physical Exam Physical Exam Vital Signs Vital Signs - First Documented 10/21/17 16:45 Temp 98.1 Pulse 73 Resp 17 B/P (MAP) 109/67 (81) Pulse Ox 96 O2 Delivery Nasal Cannula O2 Flow Rate 2.0 Capillary Refill : Less Than 3 Seconds General Appearance: No Apparent Distress, WD/WN, Chronically ill Eyes: Bilateral Eye Normal Inspection, Bilateral Eye PERRL HEENT: PERRL/EOMI, Normal ENT Inspection, Pharynx Normal Neck: Full Range of Motion, Normal Inspection, Non Tender, Supple, Carotid Bruit Respiratory: Chest Non Tender, Lungs Clear, Normal Breath Sounds, No Accessory Muscle Use, No Respiratory Distress Cardiovascular: Regular Rate, Rhythm, No Edema, No Gallop, No JVD, No Murmur, Normal Peripheral Pulses Gastrointestinal: Normal Bowel Sounds, No Organomegaly, No Pulsatile Mass, Non Tender, Soft Back: Normal Inspection, No CVA Tenderness, No Vertebral Tenderness Extremity: Normal Capillary Refill, Normal Inspection, Normal Range of Motion, Non Tender, No Calf Tenderness, No Pedal Edema Neurologic/Psychiatric: Alert, Oriented x3, No Motor/Sensory Deficits, Normal Mood/Affect Skin: Normal Color, Warm/Dry Lymphatic: No Adenopathy Results Results/Procedures Labs Laboratory Tests 10/21/17 16:50 10/22/17 03:05 Patient resulted labs reviewed. Short Stay Diagnosis Discharge Diagnosis-Short Stay Admission Diagnosis Assessment: Chest pain of noncardiac source Heat exposure Dehydration Final Discharge Diagnosis Assessment: Chest pain of noncardiac source Heat exposure Dehydration Conclusion Plan Plan: Discharge home Close follow-up with me at [facility] this Friday Hold metformin due to diarrhea Clinical Quality Measures AMI/AHF: ASA po Prior to arrival: No DVT/VTE Risk/Contraindication: Risk Factor Score Per Nursin RFS Level Per Nursing on Admit: 3=High BC BAUER DO Oct 22, 2017 11:46
[2017-10-22] MEDS ORDERED: RT-ADVAIR HFA 115/21 MCG PER PUFF IH SCH (20:00)
[2017-10-22] MEDS ORDERED: meTOprolol TARTRATE 50 MG (LOPRESSOR) TAB PO SCH (21:00)
[2017-10-22] MEDS ORDERED: NON-FORMULARY MEDICATION 1 EA EA (Lovastatin 20 MG) PO SCH (21:00)
[2017-10-22] MEDS ORDERED: MELATONIN 3 MG TABLET PO ONE (21:00)
[2017-10-22] MEDS ORDERED: NON-FORMULARY MEDICATION 1 EA EA (Budesonide/Formoterol Fumarate (Symbicort 160-4.5 Mcg In IH SCH (21:00)
[2017-10-22] MEDS ORDERED: SIMvastatin 10 MG (ZOCOR) TAB PO SCH (21:00)
[2017-10-22] MEDS ORDERED: APIXABAN 5 MG (ELIQUIS) TABLET PO SCH (21:00)
[2017-10-22] MEDS ORDERED: METOPROLOL TARTRATE 75 MG PO SCH (21:00)
[2017-10-23] MEDS ORDERED: KCL 10 MEQ TAB (MICRO K) PO SCH (07:00)
[2017-10-23] MEDS ORDERED: CALCIUM CARB + VIT D 600 MG (CALCARB + D) TAB PO SCH (08:00)
[2017-10-23] MEDS ORDERED: NON-FORMULARY MEDICATION 1 EA EA (Calcium Carbonate/Vitamin D3 (Calcium 600 + Vit D 400 Ta PO SCH (09:00)
[2017-10-23] MEDS ORDERED: FUROSEMIDE 20 MG (LASIX) TAB PO SCH (09:00)
[2017-10-23] MEDS ORDERED: ASPIRIN E.C. 81 MG (ECOTRIN) TAB PO SCH (09:00)
[2017-10-23] MEDS ORDERED: CYANOCOBALAMIN 1,000 MCG (VITAMIN B-12) TABLET PO SCH (09:00)
[2017-10-23] MEDS ORDERED: NON-FORMULARY MEDICATION 1 EA EA (Potassium Chloride 10 MEQ) PO SCH (09:00)
[2017-10-23] MEDS ORDERED: lisINopril 10 MG (PRINIVIL) TABLET PO SCH (09:00)
== END 2017-10-22 12:35 | disposition home or self-care (01) | DRG 641 ==
LOC: EDUNIT# 16:46 → ER 16:48 → ICU 18:22
PROVIDERS: ADMIT Internal Medicine; ATTEND Internal Medicine
DX: E86.0 Dehydration (principal); E83.42 Hypomagnesemia; R19.7 Diarrhea, unspecified; R07.89 Other chest pain; I11.0 Hypertensive heart disease with heart failure; I50.22 Chronic systolic (congestive) heart failure; I25.5 Ischemic cardiomyopathy; I48.0 Paroxysmal atrial fibrillation; I44.7 Left bundle-branch block, unspecified; I25.10 Atherosclerotic heart disease of native coronary artery without angina pectoris; E11.9 Type 2 diabetes mellitus without complications; K21.9 Gastro-esophageal reflux disease without esophagitis; F17.210 Nicotine dependence, cigarettes, uncomplicated; E78.5 Hyperlipidemia, unspecified; Z91.19 Patient's noncompliance with other medical treatment and regimen; I25.2 Old myocardial infarction; Z95.1 Presence of aortocoronary bypass graft; T38.3X5A Adverse effect of insulin and oral hypoglycemic [antidiabetic] drugs, initial encounter; X30.XXXA Exposure to excessive natural heat, initial encounter
CPT/HCPCS: 36415; 71045; 80053; 80061; 83690; 83735; 83874; 83880; 84100; 84484; 85007; 85025; 85027; 85610; 85730; 87081; 93005; 93041; 96361; 96365; 96375; G0378

== ENCOUNTER → 2017-11-24 | Outpatient (CLI) | payer OTHER ==
[~2017-11-24] MED LIST changes: +FAMO-119 PO
== END ==
LOC: CARD 09:10
PROVIDERS: ATTEND Internal Medicine Nephrology
DX: I25.10 Atherosclerotic heart disease of native coronary artery without angina pectoris (principal); I50.22 Chronic systolic (congestive) heart failure; I25.5 Ischemic cardiomyopathy; I48.0 Paroxysmal atrial fibrillation; E66.9 Obesity, unspecified; Z72.0 Tobacco use
CPT/HCPCS: 93306